=== PATIENT | male | born 1940 | race Caucasian/White ===

== ENCOUNTER → 2017-08-06 | Outpatient (CLI) | payer OTHER, MEDICARE ==
[~2017-08-06] MED LIST: ADVAIR 250-501 EACH IH; AFRIN15 ML NS; ASPIR 8181 MG PO; ASPIRIN EC325 M1 PO; BACTRIM DS TAB1 EACH PO; CARDIZEM CD240 MG PO; DYAZIDE 37.5-21 EACH PO; KEFLEX500 MG PO; LIPITOR10 MG PO; LISINOPRIL10 MG PO; MAXZIDE-25 MG1 EACH; NORCO 5-325 TA1 EACH PO; SIMVASTATIN20 MG PO; SPIRIVA INH; SYMBICORT160 MCG/4. INH; TOPROL XL25 MG PO; TRAMADOL 50 MG50 MG PO; TRIAMTERENE-HC1 EAC1 PO; VIT B 12 PO; VIT D 3 PO; VITAMIN B-12500 MCG PO; VITAMIN D1000 UNI1 PO
== END ==
LOC: RAD 08:05
DX: I51.7 Cardiomegaly (principal); J44.9 Chronic obstructive pulmonary disease, unspecified

== ENCOUNTER → 2017-11-28 | Outpatient (CLI) | payer OTHER, MEDICARE | LOC: SLEEPLAB 08:00 | DX: G47.33 Obstructive sleep apnea (adult) (pediatric) (principal) ==